=== PATIENT | female | born 1970 | race Native Hawaiian/Other Pacific Islander ===

== ENCOUNTER 2016-07-09 13:05 | Emergency (ER) | payer OTHER ==
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
[2016-07-09] MEDS ORDERED: MOTRIN PO ONE (20:36)
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
[2016-07-09 22:59] VITALS: BP 134/78
== END 2016-07-09 22:57 | disposition home or self-care (01) ==
LOC: ED 13:05
DX: M54.2 Cervicalgia (principal); M25.511 Pain in right shoulder; M25.512 Pain in left shoulder; R51 Headache; V43.52XA Car driver injured in collision with other type car in traffic accident, initial encounter; Y93.9 Activity, unspecified; Y99.9 Unspecified external cause status; Y92.410 Unspecified street and highway as the place of occurrence of the external cause
CPT/HCPCS: 70450; 72125

== ENCOUNTER 2021-03-14 06:56 | Day surgery (SDC) | payer OTHER ==
[2021-03-12 11:22] LABS: Basophils # (Auto) 0.1 K/mm3 (0.0-0.1); Eosinophils # (Auto) 0.3 K/mm3 (0.0-0.4); Eosinophils % (Auto) 4.2 % (0.0-4.3); Hematocrit 25.9 % (30.3-42.9); Hemoglobin 8.2 gm/dl (10.1-14.3); Lymphocytes # (Auto) 1.9 K/mm3 (1.2-5.4); Lymphocytes % (Auto) 30.3 % (13.4-35.0); Mean Corpuscular HGB Conc 32 % (30-34); Mean Corpuscular Volume 71 fl (79-97); Monocytes # (Auto) 0.4 K/mm3 (0.0-0.8); Monocytes % (Auto) 6.7 % (0.0-7.3); Platelet Count 260 K/mm3 (140-440); Red Blood Count 3.64 M/mm3 (3.65-5.03); Red Cell Distribution Width 19.5 % (13.2-15.2)
--- NOTE | 2021-03-12 11:58 | Anesthesia Consultation ---
Anesthesia Consult and Med Hx Date of service: 03/14/21 - Airway Anesthetic Teeth Evaluation: Good ROM Head & Neck: Adequate Mental/Hyoid Distance: Adequate Mallampati Class: Class II Intubation Access Assessment: Probably Good - Pulmonary Exam CTA: Yes - Cardiac Exam Cardiac Exam: RRR - Pre-Operative Health Status ASA Pre-Surgery Classification: ASA2 Proposed Anesthetic Plan: General Nerve Block: TAP - Pulmonary Hx Smoking: Yes (quit "many yrs ago") Hx Respiratory Symptoms: Yes (COVID 09/2020; prn albuterol for occasional dyspnea) Home Oxygen Therapy: No - Cardiovascular System Hx Hypertension: No Hx Heart Attack/AMI: No Hx Percutaneous Transluminal Coronary Angioplasty (PTCA): No - Central Nervous System CVA: No - Endocrine Hx Renal Disease: No Hx Liver Disease: No Hx Insulin Dependent Diabetes: No Hx Non-Insulin Dependent Diabetes: No Hx Thyroid Disease: No - Hematic Hx Anemia: Yes - Other Systems Hx Obesity: Yes (BMI 35)
[~2021-03-14 06:56] MED LIST: ACETAMINOPHEN 500 MG TAB PO SCH; BACTERIOSTATIC SODIUM CHLORIDE 0.9% 30 ML VIAL INFILTRATI ONE; GABAPENTIN 300 MG CAP PO NR; LACTATED RINGERS 1,000 ML IV SCH; MIDAZOLAM 2 MG/2 ML INJ IV NR; SCOPOLAMINE TRANSDERMAL PATCH 72 HR TD NR; fentaNYL 100 MCG/2 ML INJ IV PRN
[2021-03-14] MEDS ORDERED: ROCURONIUM 50 MG/5 ML INJ IV ONE (07:12)
[2021-03-14] MEDS ORDERED: propofoL 200 MG/20 ML VIAL IV ONE (07:12)
[2021-03-14] MEDS ORDERED: fentaNYL 100 MCG/2 ML INJ ONE (07:12)
[2021-03-14] MEDS ORDERED: LIDOCAINE PF 100 MG/5 ML (CARDIAC SYRINGE) IV ONE (07:12)
[2021-03-14] MEDS ORDERED: BUPIVACAINE/PF (0.25%) 2.5 MG/ML 30 ML VIAL INFILTRATI ONE (07:15)
[2021-03-14] MEDS ORDERED: dexAMETHasone 4 MG/ML VIAL ONE (07:15)
[2021-03-14] MEDS ORDERED: LIDOCAINE (1%) 10 MG/1 ML VIAL 20 ML MDV ONE (07:15)
[2021-03-14] MEDS ORDERED: cloNIDine/PF 1,000 MCG/10 ML VIAL EP ONE (07:15)
[2021-03-14] MEDS ORDERED: ONDANSETRON 4 MG/2 ML INJ ONE (07:18)
[2021-03-14] MEDS ORDERED: dexAMETHasone 20 MG/5 ML VIAL ONE (07:18)
--- NOTE | 2021-03-14 07:20 | Short Stay Summary ---
Short Stay Documentation Date of service: 03/14/21 Narrative H&P: 50-year-old -0-0-3 with a history of symptomatic uterine fibroids and dysfunctional uterine bleeding. The patient had a pelvic ultrasound that demonstrated evidence of uterine fibroids. Endometrial biopsy was performed that was negative. Patient elected to undergo definitive surgical management. - History Principal diagnosis: Symptomatic uterine fibroids and dysfunctional uterine bleeding Past Medical History: hypertension, migraines Past Surgical History: , Other (Tubal ligation) Social history: - Allergies and Medications Current Medications: Allergies No Known Allergies Allergy (Unverified 03/12/21 07:58) Home Medications Medication Instructions Recorded Confirmed Last Taken Type Ibuprofen [Motrin] 600 mg PO Q8H PRN #14 tablet 07/09/16 03/14/21 03/12/21 09:00 Rx Albuterol Sulfate [Proventil Hfa] 2 puff IH Q4H PRN 03/12/21 03/14/21 03/10/21 09:00 History Active Medications Acetaminophen (Acetaminophen 500 Mg Tab) 1,000 mg PO PREOP MISSAEL Stop: 03/14/21 23:00 Fentanyl (Fentanyl 100 Mcg/2 Ml Inj) 100 mcg IV ONCE PRN PRN Reason: sedation for nerve block Stop: 03/14/21 20:00 Gabapentin (Gabapentin 300 Mg Cap) 300 mg PO PREOP NR Stop: 03/14/21 20:00 Lactated Ringer's (Lactated Ringers) 1,000 mls @ 100 mls/hr IV DIRECT MISSAEL Stop: 03/14/21 23:59 Midazolam HCl (Midazolam 2 Mg/2 Ml Inj) 2 mg IV PREOP NR Stop: 03/14/21 23:00 Scopolamine (Scopolamine Transdermal Patch 72 Hr) 1 each TD PREOP NR Stop: 03/14/21 23:00 - Physical exam General appearance: no acute distress Integumentary: no rash HEENT: Atraumatic Lungs: Clear to auscultation Breasts: deferred Heart: Regular rate Gastrointestinal: normal Female Genitourinary: deferred Rectal Exam: deferred Extremities: no ischemia Neurological: Normal gait - Brief post op/procedure progress note Date of procedure: 03/14/21 Pre-op diagnosis: Symptomatic uterine fibroids dysfunctional uterine bleeding Post-op diagnosis: same Procedure: Robotic hysterectomy Bilateral salpingectomy Lysis of adhesions Anesthesia: GETA Surgeon: RAJESH CARLIN Estimated blood loss: 50-100ml Pathology: list (Uterus, cervix, bilateral tubes) Specimen disposition: to lab Condition: stable - Hospital course Hospital course: The patient was admitted the day of surgery underwent a robotic hysterectomy. Please see operative note for details of surgery. Her postoperative course was uneventful. - Disposition Condition at discharge: Good Disposition: 01 HOME / SELF CARE / HOMELESS Short Stay Discharge Plan Activity: other (Pelvic rest for 6 weeks) Diet: regular Additional Instructions: Pelvic rest for 6 weeks Patient may schedule follow-up with Dr. Carlin in 4 weeks No heavy lifting Patient may shower but no tub baths for [address] in 2 weeks
[2021-03-14] MEDS ORDERED: NEOMY 40 MG/POLYMYXIN B 200,000 UNITS/ML (GU) AMPULE IR ONE ×2 (07:25→08:38)
[2021-03-14] MEDS ORDERED: ceFAZolin/Water 2 GM/20 ML 2 GM/20 ML SYRINGE IV ONE (07:28)
--- NOTE | 2021-03-14 07:35 | Anesthesia Day of Surgery ---
Anesthesia Day of Surgery - Day of Surgery Patient Examined: Yes Patient H&P Reviewed: Yes Patient is NPO: Yes
[2021-03-14] MEDS ORDERED: ALBUTEROL 8.5 GM MDI INHALATION IH ONE (07:41)
[2021-03-14] MEDS ORDERED: KETAMINE/STERILE WATER 50 MG/ML SYRINGE ONE (08:00)
[2021-03-14] MEDS ORDERED: ceFAZolin/Water 2 GM/20 ML 2 GM/20 ML SYRINGE IV NR (08:00)
[2021-03-14] MEDS ORDERED: oxyCODONE /ACETAMINOPHEN 5-325MG TAB PO PRN (08:00)
[2021-03-14] MEDS ORDERED: ceFAZolin/STERILE WATER 2 GM/20 ML SYRINGE IV NR (08:00)
[2021-03-14] MEDS ORDERED: HYDROmorphone 1 MG/1 ML INJ IV PRN (08:30)
[2021-03-14] MEDS ORDERED: ONDANSETRON 4 MG/2 ML INJ IV PRN (08:30)
[2021-03-14] MEDS ORDERED: SODIUM CHLORIDE 0.9% IRRIG SOLN 2000 ML IR ONE (08:39)
[2021-03-14] MEDS ORDERED: SODIUM CHLORIDE 0.9% IRR 1,500 ML BOTTLE IR ONE (08:39)
--- NOTE | 2021-03-14 09:50 | Operative Report ---
Operative Report Operative Report: Date of surgery: March 14, 2021 Preoperative diagnoses: Symptomatic uterine fibroids; dysfunctional uterine bleeding Postoperative diagnoses: Same as above; pelvic adhesive disease Procedure: Robotic hysterectomy; bilateral salpingectomy; lysis of adhesions Surgeon: Hope Arredondo M.D. Cross Tie Cutter: Dione Contreras Anesthesia: Gen. endotracheal anesthesia Estimated blood loss: 50 mL Pathology: Uterus, cervix, bilateral tubes Indication: 50-year-old -0-0-3 with a history of symptomatic uterine fibroids. The patient elected to undergo definitive surgical management Procedure: The patient was taken to the operating room and given general endotracheal anesthesia without complication after a time out was performed confirming the surgery and identity of the patient. She was prepped and draped in a normal sterile fashion. A bivalve speculum was placed in the patient's vagina and a single-tooth tenaculum placed on the anterior lip of the cervix. The uterus was sounded with the uterine sound. A stay suture with 0-vicryl was placed at 12 o'clock on the anterior cervix. A [employer] uterine manipulator was placed in the bivalve speculum was then removed. A warm laparotomy sponge was placed in the vagina. Attention was then turned to the patient's abdomen where a 12millimeter supra umbilical skin incision was then made. A Veress needle was placed and peritoneal entry was verified water-filled syringe. Insufflation of the peritoneal cavity was performed with CO2 gas. The 12 mm trocar was then placed under direct visualization. An additional 8 mm robotic trocar was placed on the patient's left and right lateral side just opposite of the supraumbilical troca r. An additional 5 mm right lateral trocar was then placed as the accessory port. The supraumbilical 12 mm trocar site was closed with the Zane Del Angel device and 0-vicryl suture. The patient was then placed in steep Trendelenburg. The da Tiffany robot was then engaged. A fenestrated forcep was placed in arm 2 and a vessel sealer was placed in arm 1. General survey of the abdomen and pelvis revealed extensive omental adhesions to the anterior abdominal wall. Thorough lysis of adhesions had to be performed with the monopolar scissors. Minimal electrocautery was used on the omental adhesions. The small bowel was also adherent to the fundus of the uterus. The uterus demonstrated evidence of leiomyomas. The patient had a right simple ovarian cyst for which a cystotomy was performed with evidence of clear andrea fluid. The surgeon then transferred to the surgical console. The mesosalpinx was then isolated on the right. The ureter was isolated and identified on the right side without difficulty. The vessel sealer was used to coagulate the mesosalpinx which was then transected. The tube was transected from the ovary. The tubo-ovarian ligament was then coagulated and transected. The round ligament was then coagulated and transected also. The vesicouterine peritoneum was then entered from the patient's right side. The peritoneum was adherent to the lower uterine segment. Additional lysis of adhesions had to be performed in order to release the vesicouterine peritoneum from the lower uterine segment. The uterine vessels were then coagulated with the vessel sealer. The vessels were then transected . Attention was then turned to the patient's left side where the tubo-ovarian ligament and mesosalpinx were again isolated coagulated and transected. The vesical peritoneum was then entered from the left and joined in the midline. Peritoneum was reflected off of the lower uterine segment. Uterine vessels were then coagulated and then transected. The blood supply to the uterus was adequately contained, a posterior colpotomy was made. The V care ring was visualized. Posterior colpotomy was created with the monopolar scissors. The incision was continued circumferentially until anterior colpotomy was made. The cervix and uterus were amputated from the vaginal cuff. The uterus was then removed along with the tubes bilaterally through the vagina and a warm laparotomy sponge was placed and maintain the pneumoperitoneum. The vaginal cuff was then closed in a running fashion with V lock suture. Irrigation of the pelvis was performed. Hemoblast was applied to the incision. The [employer] 8i robot was undocked. The trocars were removed and the insuffliation was released. The skin was then reapproximated with 4-0 Monocryl. The tissue was sent to p athology which included the cervix, bilateral tubes and uterus. The patient was then successfully extubated. She was then taken to the recovery room in stable condition. All sponge laps and needle counts were correct x2.
[2021-03-14] MEDS ORDERED: NEOSTIGMINE 10MG/10 ML INJ MDV ONE (09:56)
[2021-03-14] MEDS ORDERED: GLYCOPYRROLATE 0.4 MG/2 ML INJ ONE (09:56)
--- NOTE | 2021-03-14 11:57 | Post Anesthesia Evaluation ---
- Post Anesthesia Evaluation Patient Participated: Yes Airway Patent: Yes Stable Respiratory Function: Yes Nausea/Vomiting: No Temp > 96.8F: Yes Pain Manageable: Yes Adequeate Hydration: Yes Anesthesia Complications: No
[2021-03-14 12:34] VITALS: BP 113/60
== END 2021-03-14 12:05 | disposition home or self-care (01) ==
LOC: OR 06:56
PROVIDERS: ATTEND Obstetrics & Gynecology
DX: D25.9 Leiomyoma of uterus, unspecified (principal); N93.8 Other specified abnormal uterine and vaginal bleeding; E66.9 Obesity, unspecified; M19.90 Unspecified osteoarthritis, unspecified site; Z87.891 Personal history of nicotine dependence; Z79.899 Other long term (current) drug therapy; Z98.890 Other specified postprocedural states; Z68.35 Body mass index [BMI] 35.0-35.9, adult; Z20.822 Contact with and (suspected) exposure to COVID-19
CPT/HCPCS: 36415; 58552; 64488; 84703; 85025; 86850; 86900; 86901; 88307; A4217; J0690; J0735; J1100; J2001; J2250; J2405; J2704; J2710; J3010; J3490; J7120; S2900; U0003; 64450

== ENCOUNTER 2021-07-30 15:16 | Emergency (ER) | payer SELFPAY ==
[2021-07-30] MEDS ORDERED: ONDANSETRON 4 MG/2 ML INJ IV ONE (18:35)
[2021-07-30] MEDS ORDERED: SODIUM CHLORIDE 0.9% 1000 ML 1,000 ML IV ONE ×3 (18:35→22:53)
[2021-07-30] MEDS ORDERED: MORPHINE 4 MG/1 ML INJ IV ONE (18:36)
--- NOTE | 2021-07-30 18:37 | Event Note ---
ED Screening Note Date of service: 07/30/21 Time: 18:36 ED Screening Note: Patient presents to the ER today with complaints of severe left-sided abdominal pain into her left back. Onset this morning. She reports associated nausea and vomiting and inability to keep anything down due to her vomiting. Last bowel movement was this morning but she states that the stool was small and, hard. She denies UTI symptoms. She denies similar symptoms in the past. Abdominal surgery significant for hysterectomy and C-sections in the past. This initial assessment/diagnostic orders/clinical plan/treatment(s) is/are subject to change based on patients health status, clinical progression and re-assessment by fellow clinical providers in the ED. Further treatment and workup at subsequent clinical providers discretion. Patient/guardian urged not to elope from the ED as their condition may be serious if not clinically assessed and managed. Initial orders include: Labs/CT
[2021-07-30] MEDS ORDERED: KETOROLAC 30 MG/1 ML INJ IV ONE (19:38)
--- NOTE | 2021-07-30 19:44 | Emergency Department Report ---
HPI <SHAWN PLASENCIA - Last Filed: 07/31/21 00:53> - HPI HPI: 51-year-old female with no known past medical history presents complaining of left-sided upper abdominal pain/flank pain since early this morning. The patient states that she woke up this morning with severe sharp pain in the left side of her abdomen which goes all the way around her flank to her back. The pain is constant but intermittently worse and sharp. It has been accompanied by intractable nausea and vomiting and she has vomited more times than she can count. She is never had pain like this before. She denies any associated dys uria/hematuria/discharge. She has had hysterectomy and therefore does not have menstrual periods anymore. She says she has had very little urine output today and admits to being dehydrated. She also says that throughout the day today while vomiting and experiencing intense left-sided flank pain she also felt some tightness in her chest which she no longer has now. She otherwise denies any associated headache, vision change, neck pain, cough, shortness of breath, focal weakness, sensory changes, or any other complaints. She has been vaccinated against COVID-19 but has not yet received a booster. <RODRIGO BRONSON - Last Filed: 08/01/21 03:06> - General Chief Complaint: Abdominal Pain Time Seen by Provider: 07/30/21 19:23 ED Past Medical Hx <SHAWN PLASENCIA - Last Filed: 07/31/21 00:53> - Past Medical History Hx Hypertension: No Hx Heart Attack/AMI: No Hx Liver Disease: No Hx Renal Disease: No Hx Arthritis: Yes (All joints) - Social History Smoking Status: Unknown if ever smoked Substance Use Type: None <RODRIGO BRONSON - Last Filed: 08/01/21 03:06> - Medications Home Medications: Home Medications Medication Instructions Recorded Confirmed Last Taken Type Ibuprofen [Motrin] 600 mg PO Q8H PRN #14 tablet 07/09/16 03/14/21 03/12/21 09:00 Rx Albuterol Sulfate [Proventil Hfa] 2 puff IH Q4H PRN 03/12/21 03/14/21 03/10/21 09:00 History ED Review of Systems ROS: Stated complaint: STOMACH PAIN Other details as noted in HPI <SHAWN PLASENCIA - Last Filed: 07/31/21 00:53> ROS: Stated complaint: STOMACH PAIN Other details as noted in HPI Comment: All other systems reviewed and negative Constitutional: denies: chills, fever Eyes: denies: eye pain, vision change ENT: denies: throat pain, congestion Respiratory: denies: cough, shortness of breath Cardiovascular: other (chest tightness (resolved)). denies: palpitations Gastrointestinal: abdominal pain, nausea, vomiting. denies: diarrhea Genitourinary: denies: dysuria, frequency Musculoskeletal: back pain. denies: arthralgia Skin: denies: rash, lesions Neurological: denies: headache, weakness, numbness Hematological/Lymphatic: denies: easy bleeding <RODRIGO BRONSON - Last Filed: 08/01/21 03:06> Physical Exam - Physical Exam Vital Signs: Vital Signs 07/30/21 07/30/21 18:00 20:04 Temperature 98.4 F Pulse Rate 115 H Respiratory 18 14 Rate Blood Pressure 145/97 O2 Sat by Pulse 100 Oximetry <ERINNSHAWN Frantz - Last Filed: 07/31/21 00:53> - Physical Exam Vital Signs: Vital Signs 07/30/21 18:00 Temperature 98.4 F Pulse Rate 115 H Respiratory 18 Rate Blood Pressure 145/97 O2 Sat by Pulse 100 Oximetry Physical Exam: GENERAL: Well developed and well nourished. In mild distress secondary to pain. HEAD: Normocephalic. No obvious signs of trauma. ENT: Very dry mucous membranes. EYES: Extraocular movements are intact. Pupils are equal round and reactive to light bilaterally NECK: Supple. Full ROM is intact. Trachea is midline. LUNGS: Tachypneic but not in respiratory distress. Equal chest rise bilaterally. Clear to auscultation bilaterally. CARDIOVASCULAR: Tachycardic but with regular rhythm. No murmurs or rubs. VASCULAR: Cap refill < 2 seconds. Trace edema bilaterally ABDOMEN: Abdomen is soft and nondistended. There is very mild if any tenderness to palpation of the left upper quadrant. Otherwise, no significant tenderness, guarding or rebound. SKIN: Skin is warm and dry NEURO: Patient is awake, alert, and oriented. coagulating operator II-XII grossly intact. No focal deficits. Normal motor and sensory exam throughout. Normal speech. MUSCULOSKELETAL: No obvious deformities. No significant tenderness. Normal ROM throughout. BACK/SPINE: No midline tenderness or step-offs of the C/T/L spine. Left-sided CVA tenderness noted. <RODRIGO BRONSON - Last Filed: 08/01/21 03:06> ED Course Vital Signs 07/30/21 07/30/21 18:00 20:04 Temperature 98.4 F Pulse Rate 115 H Respiratory 18 14 Rate Blood Pressure 145/97 O2 Sat by Pulse 100 Oximetry - Consultations Consultation #1: 07/31/21 00:53 Patient accepted to [facility]. Patient accepted by Dr. Mclaughlin <SHAWN PLASENCIA - Last Filed: 07/31/21 00:53> Vital Signs 07/30/21 18:00 Temperature 98.4 F Pulse Rate 115 H Respiratory 18 Rate Blood Pressure 145/97 O2 Sat by Pulse 100 Oximetry <RODRIGO BRONSON - Last Filed: 08/01/21 03:06> ED Medical Decision Making - Lab Data Result diagrams: 07/30/21 19:56 07/30/21 19:56 <SHAWN PLASENCIA - Last Filed: 07/31/21 00:53> - Lab Data Result diagrams: 07/30/21 19:56 07/30/21 19:56 - Radiology Data Radiology results: report reviewed - Medical Decision Making 51-year-old female presenting with 1 day of left-sided flank pain with nausea and vomiting since this morning. Patient is in distress secondary to pain. She also reported chest tightness earlier today but not now. She is afebrile and with normal vital signs other than elevated heart rate in the 110s. On physical examination, she has very dry mucous membranes. She is tachycardic. Lungs are clear to auscultation. She has very mild left upper quadrant abdominal tenderness but more significant left CVA tenderness is noted. Labs were drawn in triage and the patient was ordered 1 L of IV fluids as well as morphine and Zofran. This appears to have provided the patient with some relief as she is much more calm now. In addition I will add 1 L of IV fluids and a dose of Toradol. In addition to labs we will perform EKG, chest x-ray, and CT of the abdomen pelvis to assess for evidence of kidney stone versus colitis versus appendicitis versus pancreatitis versus pyelonephritis versus other abnormality to explain the patient's presentation. We will reassess soon. Chest x-ray reveals no acute abnormalities. Labs reveal leukocytosis with elevated white blood cell count of 16.1. Hemoglo bin is 9.3. Kidney function is normal and there are no significant electrolyte abnormalities. Troponin is negative. Urinalysis shows 36 WBCs with no RBCs consistent with urinary tract infection. CT of the abdomen pelvis reveals obstructing stones within the left proximal ureter size 7 mm and 2 mm with moderate left sided hydronephrosis as well as left perinephric stranding and bladder wall thickening consistent with infected obstructed kidney stone. Given CT finding of infected obstructed kidney stone I have ordered broad- spectrum IV cefepime. In addition I have ordered an additional liter of IV fluids. I reassessed the patient immediately and she reports that she feels much better but still has left-sided pain. I explained the diagnostic results and the working diagnosis as well as the need for transfer to a facility that has urology on-call for possible intervention. The patient expressed understanding and agreement with this plan of care. I immediately asked the accounts payables clerk to try to find a facility with urology on-call available for transfer. I asked the charge nurse that the patient be moved to the main ED bed given her clinical condition and he confirmed. <RODRIGO BRONSON - Last Filed: 08/01/21 03:06> Critical care attestation.: If time is entered above; I have spent that time in minutes in the direct care of this critically ill patient, excluding procedure time. <SHAWN PLASENCIA - Last Filed: 07/31/21 00:53> Critical care attestation.: If time is entered above; I have spent that time in minutes in the direct care of this critically ill patient, excluding procedure time. <RODRIGO BRONSON - Last Filed: 08/01/21 03:06> ED Disposition Is pt being admited?: No Does the pt Need Aspirin: No Time of Disposition: 00:54 (Awaiting transport) <SHAWN PLASENCIA - Last Filed: 07/31/21 00:53> Is pt being admited?: No <RODRIGO BRONSON - Last Filed: 08/01/21 03:06> Clinical Impression: Obstruction of left ureter, Calculus of proximal left ureter, UTI (urinary tract infection), Hydronephrosis, left Disposition: 02 SHORT TERM HOSPITAL Condition: Fair Instructions: Abdominal Pain (ED) Referrals: PRIMARY CARE, [Primary Care Provider] - 3-5 Days
[2021-07-30 20:25] LABS: Basophils % (Auto) 0.3 % (0.0-1.8); Mean Corpuscular HGB Conc 30 % (30-34); Monocytes # (Auto) 0.7 K/mm3 (0.0-0.8); Monocytes % (Auto) 4.5 % (0.0-7.3); Platelet Count 238 K/mm3 (140-440); Red Blood Count 5.11 M/mm3 (3.65-5.03)
[2021-07-30 21:31] LABS: Alanine Aminotransferase 23 units/L (7-56); Albumin 4.2 g/dL (3.9-5); BUN/Creatinine Ratio 15; Blood Urea Nitrogen 12 mg/dL (7-17); Calcium 8.6 mg/dL (8.4-10.2); Hemolysis Index 1
[2021-07-30 22:08] LABS: Hematocrit 31.2 % (30.3-42.9); Hemoglobin 9.3 gm/dl (10.1-14.3); Mean Corpuscular Volume 61 fl (79-97); Red Cell Distribution Width 21.9 % (13.2-15.2)
[2021-07-30 22:18] LABS: Mucus,Urine 1+ /HPF
[2021-07-30 22:22] LABS: Bilirubin,Direct < 0.2 mg/dL (0-0.2)
[2021-07-30] MEDS ORDERED: CEFEPIME/NS 2 GM/100 ML 2 GM/100 ML BAG IV ONE (22:42)
[2021-07-30 22:53] LABS: Color,Urine Yellow (Yellow)
[2021-07-30 22:54] LABS: Blood,Urine Negative (Negative)
--- NOTE | 2021-07-30 23:54 | XRay Report ---
CHEST 1 VIEW 07/30/2021 7:50 PM INDICATION / CLINICAL INFORMATION: Chest pain. COMPARISON: None available. FINDINGS: SUPPORT DEVICES: None. HEART / MEDIASTINUM: The heart size and pulmonary vasculature are normal. The aorta is normal in [place]. LUNGS / PLEURA: No significant pulmonary or pleural abnormality. No pneumothorax. ADDITIONAL FINDINGS: No significant additional findings. IMPRESSION: No acute findings. Signer Name: Iglesia Ribeiro MD Signed: 07/30/2021 8:02 PM Workstation Name: [id number]
--- NOTE | 2021-07-30 23:54 | Cat Scan Report ---
CT ABDOMEN AND PELVIS WITH CONTRAST INDICATION / CLINICAL INFORMATION: Severe LEFT-sided abdominal / back pain. TECHNIQUE: Axial CT images were obtained through the abdomen and pelvis after 100 cc Omnipaque [address] scans at this location are performed using CT dose reduction for ALARA by means of automated exposure control. COMPARISON: None available. FINDINGS: LOWER CHEST: No significant abnormality. LIVER: Mild diffuse hepatic steatosis. No focal liver lesion. GALLBLADDER: No significant abnormality. BILE DUCTS: No significant abnormality. PANCREAS: No significant abnormality. SPLEEN: No significant abnormality. ADRENALS: No significant abnormality. RIGHT KIDNEY / URETER: No significant abnormality. LEFT KIDNEY / URETER: Moderate hydronephrosis secondary to 2 stones in the proximal left ureter. The larger stone measures 7 mm in a more distal stone is punctate measuring about 2 mm. There is left per inephric stranding. There are additional multiple stones in the left kidney with scarring at the left upper pole. STOMACH / SMALL BOWEL: No significant abnormality. COLON: No significant abnormality. APPENDIX: No significant abnormality. PERITONEUM: No free fluid. No free air. No fluid collection. LYMPH NODES: No significant adenopathy. AORTA / ARTERIES: No significant abnormality. IVC / VEINS: No significant abnormality. URINARY BLADDER: Mild thickening of urinary bladder wall. REPRODUCTIVE ORGANS: No significant abnormality. ADDITIONAL FINDINGS: Small fat-containing right inguinal hernia.. SKELETAL SYSTEM: No significant abnormality. IMPRESSION: 1. Moderate left hydronephrosis secondary to obstructing stones in the proximal left ureter. Addition al multiple left renal stones with scarring at the left upper pole. 2. Mild bladder wall thickening. Recommend correlation for cystitis. Signer Name: Cesar Henriquez MD Signed: 07/30/2021 10:34 PM Workstation Name: [id number]
[2021-07-31 01:30] VITALS: BP 120/56
== END 2021-07-31 02:02 | disposition short-term general hospital (02) ==
LOC: ED 15:16
DX: N13.5 Crossing vessel and stricture of ureter without hydronephrosis (principal); N20.1 Calculus of ureter; N39.0 Urinary tract infection, site not specified
CPT/HCPCS: 36415; 71045; 74177; 80048; 80076; 81001; 83690; 83735; 84484; 85025; 87040; 87086; 96361; 96365; 96375; 99285; J0692; J1885; J2270; J2405; J7030; Q9967; 87076; 87186; Q0162